=== PATIENT | female | born 1995 | race African-American/Black ===

== ENCOUNTER 2018-12-19 22:26 | Inpatient (IN) | payer MEDICAID ==
[~2018-12-19] VITALS: Ht 162.6 cm; Wt 74.8 kg
[2018-12-20] MEDS ORDERED: DEXT 5%/LR + PITOCIN 20UNITS/L 1,000 ML IV SCH ×2 (01:42→04:13)
[2018-12-20] MEDS ORDERED: CARBOPROST TROMETHAMINE 250 MCG/ML AMPUL IM PRN (01:45)
[2018-12-20] MEDS ORDERED: METHYLERGONOVINE MALEATE 0.2 MG/ML IM PRN (01:45)
[2018-12-20] MEDS ORDERED: LIDOCAINE HCL 1% 20ML VIAL (Pyxis) INJ INFIL SCH (01:45)
[2018-12-20] MEDS ORDERED: MISOPROSTOL 100MCG TABLET VG SCH (01:45)
[2018-12-20] MEDS ORDERED: BUTORPHANOL TARTRATE 2 MG/ML VIAL IV PRN (01:45)
[2018-12-20] MEDS ORDERED: PENICILLIN G POTASSIUM 5 MMU in DEXT 5% WATER 100 ML IV SCH (02:00)
[2018-12-20 02:07] LABS: CLARITY URINE CLEAR (CLEAR); COLOR URINE YELLOW (YELLOW); KETONES URINE NEGATIVE (NEGATIVE); LEUKOCYTE ESTERASE URINE 1+ (NEGATIVE); NITRITE URINE NEGATIVE (NEGATIVE); OCCULT BLOOD URINE NEGATIVE (NEGATIVE); PROTEIN URINE NEGATIVE (NEGATIVE); SPECIFIC GRAVITY URINE 1.014 (1.005-1.030); UROBILINOGEN URINE 0.2 E.U./dL (0.2-1.0)
[2018-12-20 02:14] LABS: INR 0.9; PARTIAL THROMBOPLASTIN TIME 27.8 sec (23.4-31.0); PROTHROMBIN TIME 9.2 sec (9.6-11.0)
[2018-12-20 02:24] LABS: BASOPHILS % 0.4 % (0.0-2.0); EOSINOPHILS % 0.9 % (0.0-5.0); HEMATOCRIT. 31.6 % (36.0-48.0); HEMOGLOBIN. 10.3 g/dL (12.0-16.0); LYMPHOCYTES % 21.7 % (20.0-50.0); MEAN CORPUSCULAR HEMOGLOBIN 27.3 pg (28.0-32.0); MEAN CORPUSCULAR VOLUME 83.6 fL (81.0-99.0); MEAN PLATELET VOLUME 10.3 fl (7.4-10.4); MONOCYTES % 9.5 % (2.0-8.0); NEUTROPHILS % 67.5 % (40.0-76.0); PLATELET 186 x1000/uL (130-400); RED BLOOD CELL COUNT 3.78 mill/uL (4.2-5.4)
[2018-12-20 02:36] LABS: *AMPHETAMINES SCREEN URINE NEGATIVE (NEGATIVE); *BARBITURATES SCREEN URINE NEGATIVE (NEGATIVE); CANNABINOID URINE SCREEN NEGATIVE (NEGATIVE); METHADONE URINE SCREEN NEGATIVE (NEGATIVE); OPIATES URINE SCREEN NEGATIVE (NEGATIVE); PHENCYCLIDINE URINE SCREEN NEGATIVE (NEGATIVE)
[2018-12-20 02:37] LABS: *BENZODIAZEPINES SCREEN URINE NEGATIVE (NEGATIVE); *COCAINE SCREEN URINE NEGATIVE (NEGATIVE)
[2018-12-20] MEDS: LACTATED RINGERS 1,000 ML IV SCH ×2 (02:56→04:19)
[2018-12-20 03:31] LABS: HEPATITIS B SURFACE ANTIGEN NEGATIVE
[2018-12-20] MEDS ORDERED: IBUPROFEN 400MG TABLET PO PRN (04:15)
[2018-12-20] MEDS ORDERED: ACETAMINOPHEN WITH CODEINE 300/30MG TABLET PO PRN (04:15)
[2018-12-20] MEDS ORDERED: LANOLIN OINT 7GM TUBE TOP PRN (04:15)
[2018-12-20] MEDS ORDERED: RHO(D) IMMUNE GLOBULIN 300 MCG/SYR IM PRN (04:15)
[2018-12-20] MEDS ORDERED: IBUPROFEN 800MG TABLET PO PRN (04:15)
[2018-12-20 05:00] VITALS: BP 120/77
[2018-12-20] MEDS ORDERED: PENICILLIN G POTASSIUM 2.5 MMU in DEXTROSE 5% WATER 50 ML IV SCH (06:00)
[2018-12-20 07:48] VITALS: BP 116/63
[2018-12-20] MEDS: PRENATAL VIT/FE FUMARATE/FA TABLET PO SCH (09:00)
[2018-12-20 16:02] VITALS: BP 113/71
[2018-12-20 20:01] VITALS: BP 124/84
[2018-12-21] MEDS ORDERED: METHYLERGONOVINE MALEATE 0.2 MG/ML IM PRN (02:00)
[2018-12-21 04:00] VITALS: BP 120/80
[2018-12-21 07:15] VITALS: BP 120/80
[2018-12-21 07:30] LABS: BASOPHILS % 0.6 % (0.0-2.0); EOSINOPHILS % 1.6 % (0.0-5.0); HEMATOCRIT. 30.1 % (36.0-48.0); HEMOGLOBIN. 9.8 g/dL (12.0-16.0); LYMPHOCYTES % 26.3 % (20.0-50.0); MEAN CORPUSCULAR HEMOGLOBIN 26.9 pg (28.0-32.0); MEAN CORPUSCULAR VOLUME 82.5 fL (81.0-99.0); MONOCYTES % 8.3 % (2.0-8.0); NEUTROPHILS % 63.2 % (40.0-76.0); PLATELET 160 x1000/uL (130-400); RED BLOOD CELL COUNT 3.65 mill/uL (4.2-5.4); RED CELL DISTRIBUTION WIDTH 13.9 % (11.6-14.6)
[2018-12-21 16:00] VITALS: BP 110/75
[2018-12-21 22:00] VITALS: BP 116/68
[2018-12-22 04:00] VITALS: BP 120/62
[2018-12-22 08:00] VITALS: BP 117/75
[2018-12-22] MEDS: PRENATAL VIT/FE FUMARATE/FA TABLET PO SCH (11:14)
== END 2018-12-22 12:15 | disposition home or self-care (01) | DRG 560 ==
LOC: OBSVTOIN 22:26 → 8 EST LDRP 22:26 → 8EST 12-20 04:37
PROVIDERS: ADMIT Obstetrics & Gynecology; ATTEND Obstetrics & Gynecology
PROC: 10E0XZZ Delivery of Products of Conception, External Approach (ICD-10-PCS; principal; 2018-12-20)
DX: O90.81 Anemia of the puerperium (principal); Z37.0 Single live birth; Z3A.38 38 weeks gestation of pregnancy
CPT/HCPCS: 36415; 80305; 86592; 86703; 86762; 86850; 86900; 87340; 99281; G0378; J0595; J2540; J2590; J3490; J7060; J7120

== ENCOUNTER 2019-07-20 23:50 | Emergency (ER) | payer MEDICAID ==
[~2019-07-20] VITALS: Ht 162.6 cm; Wt 69.0 kg
[2019-07-21] MEDS ORDERED: IBUPROFEN 600MG TABLET PO ONE (01:00)
[2019-07-21] MEDS ORDERED: TETANUS, DIPHTHERIA, PERTUSSIS VAC/PF 0.5ML (>7YR OLD) IM ONE (01:00)
[2019-07-21] MEDS ORDERED: CEPHALEXIN 250MG CAPSULE PO ONE (01:00)
[2019-07-21 02:53] VITALS: BP 115/76
== END 2019-07-21 02:53 | disposition home or self-care (01) ==
LOC: ER 23:50
DX: S67.193A Crushing injury of left middle finger, initial encounter (principal); W22.8XXA Striking against or struck by other objects, initial encounter; Y93.89 Activity, other specified; Y92.810 Car as the place of occurrence of the external cause
CPT/HCPCS: 29130; 73130; 90471; 90715; 99283